=== PATIENT | female | born 1985 | race Caucasian/White ===

== ENCOUNTER 2024-12-14 16:43 | Emergency (ER) | payer OTHER ==
[~2024-12-14] VITALS: Ht 165.1 cm; Wt 99.8 kg
[~2024-12-14 16:43] MED LIST: POLY17UD PO; PROM25 PO; TRAM50 PO
[2024-12-14] MEDS ORDERED: Ipratropium/Albuterol SulF 2.5-0.5MG/3 ML Amp INH ONE (16:55)
[2024-12-14] MEDS ORDERED: Albuterol 2.5 MG/3 ML VIAL INH SCH (17:25)
[2024-12-14 18:42] VITALS: BP 176/95
[2024-12-14] MEDS ORDERED: PRED20 PO (19:14)
[2024-12-14] MEDS ORDERED: RX Prepack Albuterol 1 PREPACK/6.7 GM INH UD ONE (19:15)
== END 2024-12-14 19:40 | disposition home or self-care (01) ==
LOC: ER 16:43
DX: J45.901 Unspecified asthma with (acute) exacerbation (principal); Z88.6 Allergy status to analgesic agent; Z88.5 Allergy status to narcotic agent; Z88.8 Allergy status to other drugs, medicaments and biological substances; Z79.899 Other long term (current) drug therapy
CPT/HCPCS: 71046; 99285-25; A9270; J7512